=== PATIENT | male | born 1995 | race African-American/Black ===

== ENCOUNTER 2019-02-03 09:35 | Emergency (ER) | payer SELFPAY ==
--- NOTE | 2019-02-03 10:51 | ED ---
Influenza-Like Illness - HPI Summary HPI Summary: This pt is a 23 Y/O M presenting to [facility] with a CC of flu like symptoms that has been present since 01/20/19. He states that he has been experiencing coughs, chills, sweats, fatigue, loss of appetite, headaches, sore throat, and nasal congestion. He also states that when he coughs he has chest pain. He has generalized pain all over his body which is rated a 6/10 in severity. He states that his cough has been productive and has had multiple different colors of sputum. He states that he also has had a fever. He has no alleviating factors. He has a SHx of smoking one or two cigarettes per day. He has no pertinent PMHx. - History of Current Complaint Chief Complaint: EDFluSymptoms Time Seen by Provider: 02/03/19 10:07 Hx Obtained From: Patient Onset/Duration: Gradual Onset, Lasting Weeks - 2, Still Present Severity: Moderate - 6/10 Associated Signs & Symptoms: Fever, Myalgia, Cough, Sore Throat, Nasal Congestion, Headache Related Hx: Smoking - Allergy/Home Medications Allergies/Adverse Reactions: Allergies Allergy/AdvReac Type Severity Reaction Status Date / Time lactase [From Dairy Aid] Allergy GI Upset Verified 02/03/19 09:47 Home Medications: Home Medications Acetaminophen [Tylenol Extra Strength] 500 mg PO BID 02/03/19 [History Confirmed 02/03/19] Ibuprofen TAB* [Motrin TAB* 800 MG] 800 mg PO DAILY 02/03/19 [History Confirmed 02/03/19] PMH/Surg Hx/FS Hx/Imm Hx Previously Healthy: Yes Sensory History: Denies: Hx Contacts or Glasses Opthamlomology History: Denies: Hx Contacts or Glasses EENT History: Denies: Hx Deafness - Surgical History Surgical History: None - Immunization History Immunizations Up to Date: Yes Infectious Disease History: No Infectious Disease History: Denies: Traveled Outside the [place] in Last 30 Days - Family History Known Family History: Positive: None - No family history of heart disease or dm Negative: Cardiac Disease, Diabetes - Social History Occupation: Employed Full-time Lives: Alone Alcohol Use: Weekly Alcohol Amount: 1-2 beers weekly Hx Substance Use: No Substance Use Type: Reports: None Hx Tobacco Use: Yes Smoking Status (MU): Light Every Day Tobacco Smoker Type: Cigarettes Amount Used/How Often: 1-2 cigarettes per day Review of Systems Positive: Fever, Chills, Fatigue, Skin Diaphoresis, Other - loss of appetite ENT: Other - nasal congestion Positive: Sore Throat Positive: Chest Pain - secondary to cough Positive: Cough - productive Positive: Myalgia Positive: Headache All Other Systems Reviewed And Are Negative: Yes Physical Exam - Summary Physical Exam Summary: Appearance: The patient is well-nourished in no acute distress and in no acute pain. Skin: The skin is warm and dry and skin color reflects adequate perfusion. HEENT: The head is normocephalic and atraumatic. The pupils are equal and reactive. The conjunctivae are clear and without drainage. Nares are patent and without drainage. Mouth reveals moist mucous membranes and the throat has Mild bilateral intracervical adenopathy and tenderness to palpation. The external ears are intact. The ear canals are patent and without drainage. The tympanic membranes are intact. Neck: The neck is supple with full range of motion and non-tender. There are no carotid bruits. There is no neck vein distension. Respiratory: Chest is non-tender. Lungs are clear to auscultation and breath sounds are symmetrical and equal. Cardiovascular: Heart is regular rate and rhythm. There is no murmur or rub auscultated. There is no peripheral edema and pulses are symmetrical and equal. Abdomen: The abdomen is soft and non-tender. There are normal bowel sounds heard in all four quadrants and there is no organomegaly palpated. Musculoskeletal: There is no back tenderness noted. Extremities are non-tender with full range of motion. There is good capillary refill. There is no peripheral edema or calf tenderness elicited. Neurological: Patient is alert and oriented to person, place and time. The patient has symmetrical motor strength in all four extremities. Cranial nerves are grossly intact. Deep tendon reflexes are symmetrical and equal in all four extremities. Psychiatric: The patient has an appropriate affect and does not exhibit any anxiety or depression. Triage Information Reviewed: Yes Vital Signs On Initial Exam: Initial Vitals Temp Pulse Resp BP Pulse Ox 97.6 F 98 16 112/80 100 02/03/19 09:45 02/03/19 09:45 02/03/19 09:45 02/03/19 09:45 02/03/19 09:45 Vital Signs Reviewed: Yes Diagnostics - Vital Signs Vital Signs Temp Pulse Resp BP Pulse Ox 02/03/19 09:45 97.6 F 98 16 112/80 100 - Laboratory Lab Statement: Any lab studies that have been ordered have been reviewed, and results considered in the medical decision making process. Flu Symptom Course/Dx - Course Course Of Treatment: Mr. Barajas presents with upper respiratory tract symptomatology. He was found to be nontoxic in appearance with stable vitals and have a positive strep test. I will treat him with antibiotics and encouraged follow-up. - Diagnoses Provider Diagnoses: Strep throat Discharge ED - Sign-Out/Discharge Documenting (check all that apply): Patient Departure - discharge Patient Received Moderate/Deep Sedation with Procedure: No - Discharge Plan Condition: Stable Disposition: HOME Prescriptions: Penicillin VK TAB* [Penicillin VK 250 mg Tab*] 500 mg PO QID #40 tab Patient Education Materials: Strep Throat (ED) Referrals: [facility] [Outside] - 2 Days Additional Instructions: PLEASE FOLLOW UP WITH THE [facility] IN 1-3 DAYS TO BE CONNECTED TO A PRIMARY CARE PHYSICIAN. RETURN TO THE EMERGENCY DEPARTMENT FOR ANY NEW OR WORSENING SYMPTOMS. Please use the medications prescribed to you as directed. - Billing Disposition and Condition Condition: STABLE Disposition: Home - Attestation Statements Document Initiated by Scribe: Yes Documenting Scribe: Chris Lassiter Provider For Whom Simi is Documenting (Include Credential): Sanju Martin MD Scribe Attestation: Chris Ayon, scribed for Sanju Martin MD on 02/03/19 at 1851. Scribe Documentation Reviewed: Yes Provider Attestation: The documentation as recorded by the Chris ordriguez accurately reflects the service I personally performed and the decisions made by me, Sanju Martin MD Status of Scribe Document: Viewed
[2019-02-03 11:21] LABS: Rapid Strep Molecular POSITIVE (Negative)
[2019-02-03 11:30] LABS: Influenza A Molecular NEGATIVE (Negative); Influenza B Molecular NEGATIVE (Negative)
[2019-02-03 11:48] VITALS: BP 114/78
== END 2019-02-03 11:44 | disposition home or self-care (01) ==
LOC: ED 09:35
DX: J02.0 Streptococcal pharyngitis (principal); F17.210 Nicotine dependence, cigarettes, uncomplicated
CPT/HCPCS: 87651; 99282